=== PATIENT | male | born 1955 | race African-American/Black ===

== ENCOUNTER 2017-04-10 09:54 | Inpatient (IN) | payer MEDICAID ==
[~2017-04-10] VITALS: Ht 185.4 cm; Wt 73.5 kg
[~2017-04-10 09:54] MED LIST: aspirin; benazepril; depakote; nph insulin SUBCUT; regular insulin; regular insulin SUBCUT; simvastatin
[2017-04-10] MEDS ORDERED: SODIUM CHLORIDE 0.9% 1,000 ML IV ONE ×3 (10:06→13:45)
[2017-04-10 10:44] LABS: BASOPHILS % 0.7 % (0.0-2.0); EOSINOPHILS % 0.1 % (0.0-5.0); HEMATOCRIT. 43.1 % (42.0-52.0); HEMOGLOBIN. 13.6 g/dL (14.0-18.0); LYMPHOCYTES % 7.5 % (20.0-50.0); MEAN CORPUSCULAR HEMOGLOBIN 30.2 pg (28.0-32.0); MEAN CORPUSCULAR VOLUME 95.6 fL (80.0-94.0); MEAN PLATELET VOLUME 8.5 fl (7.4-10.4); MONOCYTES % 2.2 % (2.0-8.0); NEUTROPHILS % 89.5 % (40.0-76.0); PLATELET 328 x1000/uL (130-400); RED BLOOD CELL COUNT 4.51 mill/uL (4.7-6.1); RED CELL DISTRIBUTION WIDTH 12.9 % (11.6-14.6)
[2017-04-10] MEDS ORDERED: INSULIN REGULAR (HUMULIN R) 300UNITS/3ML SUBCUT ONE (10:45)
[2017-04-10 10:51] LABS: CHLORIDE 94 mEq/L (98-107)
[2017-04-10 10:52] LABS: INR 1.1
[2017-04-10] MEDS ORDERED: CALCIUM CHLORIDE 1GM/10ML SYR IV ONE (11:30)
[2017-04-10 11:31] LABS: CLARITY URINE CLEAR (CLEAR); COLOR URINE YELLOW (YELLOW); KETONES URINE 2+ (NEGATIVE); LEUKOCYTE ESTERASE URINE NEGATIVE (NEGATIVE); NITRITE URINE NEGATIVE (NEGATIVE); OCCULT BLOOD URINE NEGATIVE (NEGATIVE); PROTEIN URINE NEGATIVE (NEGATIVE); SPECIFIC GRAVITY URINE 1.031 (1.005-1.030); UROBILINOGEN URINE 0.2 E.U./dL (0.2-1.0)
[2017-04-10] MEDS ORDERED: INSULIN REGULAR (DRIP) 100 UNITS in SODIUM CHLORIDE 0.9% 100 ML IV ONE ×2 (12:45→13:15)
[2017-04-10 16:03] VITALS: BP 133/71
[2017-04-10] MEDS ORDERED: HYDROCODONE/ACETAMINOPHEN 5/325MG TABLET PO PRN (17:15)
[2017-04-10] MEDS ORDERED: DEXTROSE 50% WATER 50ML SYRINGE IV PRN (17:15)
[2017-04-10] MEDS ORDERED: ONDANSETRON HCL 4MG/2ML VIAL IV PRN (17:15)
[2017-04-10] MEDS ORDERED: NON FORMULARY PATIENT HOME MED EA XX SCH (17:15)
[2017-04-10 18:00] VITALS: BP 139/79
[2017-04-10] MEDS ORDERED: ENOXAPARIN 40MG/0.4ML SYR SUBCUT SCH (18:00)
[2017-04-10] MEDS: BLOOD SUGAR DIAGNOSTIC STRIP TEST SCH ×2 (18:07→21:02)
[2017-04-10] MEDS: INSULIN LISPRO 100 UNITS/ML SUBCUT SCH ×2 (18:23→21:56)
[2017-04-10] MEDS: SODIUM CHLORIDE 0.9% 1,000 ML IV SCH (18:25)
[2017-04-10 19:31] LABS: CHLORIDE 101 mEq/L (98-107)
[2017-04-10 19:39] LABS: HDL CHOLESTEROL 96 mg/dL (40-59); LDL CHOLESTEROL 126 mg/dL (5-100)
[2017-04-10 21:00] VITALS: BP 120/58
[2017-04-10] MEDS ORDERED: ATORVASTATIN CALCIUM 10MG TABLET PO SCH (21:00)
[2017-04-10] MEDS: INS NPH/REG HM 70-30 100 UNITS/ML 10ML VIAL (HUMULIN 70-30) SUBCUT SCH (21:01)
[2017-04-10] MEDS: INSULIN REGULAR (HUMULIN R) 300UNITS/3ML SUBCUT SCH (21:02)
[2017-04-10 22:00] VITALS: BP 149/84
[2017-04-11] VITALS (10 sets, daily range): BP systolic 124–131; BP diastolic 63–86
[2017-04-11] MEDS: SODIUM CHLORIDE 0.9% 1,000 ML IV SCH ×2 (02:02→09:15)
[2017-04-11 07:15] LABS: BASOPHILS % 0.7 % (0.0-2.0); EOSINOPHILS % 2.4 % (0.0-5.0); HEMATOCRIT. 36.3 % (42.0-52.0); HEMOGLOBIN. 11.9 g/dL (14.0-18.0); LYMPHOCYTES % 15.6 % (20.0-50.0); MEAN CORPUSCULAR HEMOGLOBIN 29.8 pg (28.0-32.0); MEAN CORPUSCULAR VOLUME 90.9 fL (80.0-94.0); MEAN PLATELET VOLUME 7.7 fl (7.4-10.4); MONOCYTES % 7.4 % (2.0-8.0); NEUTROPHILS % 73.9 % (40.0-76.0); PLATELET 282 x1000/uL (130-400); RED BLOOD CELL COUNT 3.99 mill/uL (4.7-6.1); RED CELL DISTRIBUTION WIDTH 12.5 % (11.6-14.6)
[2017-04-11] MEDS: BLOOD SUGAR DIAGNOSTIC STRIP TEST SCH ×2 (07:25→11:42)
[2017-04-11 07:49] LABS: CHLORIDE 108 mEq/L (98-107)
[2017-04-11] MEDS: INSULIN LISPRO 100 UNITS/ML SUBCUT SCH ×2 (08:00→12:07)
[2017-04-11] MEDS: INS NPH/REG HM 70-30 100 UNITS/ML 10ML VIAL (HUMULIN 70-30) SUBCUT SCH (08:09)
[2017-04-11] MEDS: INSULIN REGULAR (HUMULIN R) 300UNITS/3ML SUBCUT SCH (08:10)
== END 2017-04-11 15:35 | disposition home or self-care (01) | DRG 52 ==
LOC: ER 09:54 → EDBEDREQTM 11:57 → EDBEDREQ 11:57 → EDBEDREQSVC 12:41 → EDBEDREQ 12:54 → CANRESERV 12:57 → ENRESERV 12:57 → 5EST 13:56 → EDBEDREQSVC 13:57 → ENRESERV 14:03
PROVIDERS: ADMIT Internal Medicine; ATTEND Internal Medicine
DX: G93.41 Metabolic encephalopathy (principal); N17.0 Acute kidney failure with tubular necrosis; E11.00 Type 2 diabetes mellitus with hyperosmolarity without nonketotic hyperglycemic-hyperosmolar coma (NKHHC); E87.8 Other disorders of electrolyte and fluid balance, not elsewhere classified; I10 Essential (primary) hypertension; E87.1 Hypo-osmolality and hyponatremia; E10.65 Type 1 diabetes mellitus with hyperglycemia; E78.00 Pure hypercholesterolemia, unspecified; E78.5 Hyperlipidemia, unspecified; Z79.4 Long term (current) use of insulin; Z82.49 Family history of ischemic heart disease and other diseases of the circulatory system; Z83.3 Family history of diabetes mellitus
CPT/HCPCS: 36415; 71045; 80048; 80053; 80061; 81001; 82010; 82962; 83036; 83605; 85025; 85610; 87040; 87086; 93005; 99291; J1650; J1815; J3490; J7030; J7050

== ENCOUNTER 2018-08-16 20:15 | Inpatient (IN) | payer MEDICAID ==
[~2018-08-16] VITALS: Ht 180.3 cm; Wt 75.3 kg
[2018-08-16] MEDS ORDERED: SODIUM CHLORIDE 0.9% 1,000 ML IV ONE ×2 (20:47→22:44)
[2018-08-16] MEDS ORDERED: OLANZAPINE 10 MG/VIAL IM ONE (21:00)
[2018-08-16] MEDS ORDERED: LORAZEPAM 2MG/ML CPJ IV ONE ×2 (21:00→23:45)
[2018-08-16] MEDS ORDERED: LORAZEPAM 2MG/ML CPJ IM ONE (21:15)
[2018-08-16 21:16] LABS: CLARITY URINE CLEAR (CLEAR); COLOR URINE YELLOW (YELLOW); KETONES URINE 2+ (NEGATIVE); LEUKOCYTE ESTERASE URINE NEGATIVE (NEGATIVE); NITRITE URINE NEGATIVE (NEGATIVE); OCCULT BLOOD URINE 1+ (NEGATIVE); PROTEIN URINE NEGATIVE (NEGATIVE); SPECIFIC GRAVITY URINE 1.024 (1.005-1.030); UROBILINOGEN URINE 0.2 E.U./dL (0.2-1.0)
[2018-08-16 21:17] LABS: BASOPHILS % 1.2 % (0.0-2.0); EOSINOPHILS % 3.5 % (0.0-5.0); HEMATOCRIT. 35.4 % (42.0-52.0); HEMOGLOBIN. 11.7 g/dL (14.0-18.0); LYMPHOCYTES % 20.6 % (20.0-50.0); MEAN CORPUSCULAR HEMOGLOBIN 31.4 pg (28.0-32.0); MEAN CORPUSCULAR VOLUME 95.1 fL (80.0-94.0); MEAN PLATELET VOLUME 8.3 fl (7.4-10.4); NEUTROPHILS % 64.7 % (40.0-76.0); PLATELET 246 x1000/uL (130-400); RED BLOOD CELL COUNT 3.73 mill/uL (4.7-6.1); RED CELL DISTRIBUTION WIDTH 12.8 % (11.6-14.6)
[2018-08-16 21:25] LABS: CHLORIDE 97 mEq/L (98-107)
[2018-08-16 21:26] LABS: INR 1.1; PROTHROMBIN TIME 10.9 sec (9.6-11.0)
[2018-08-16 21:29] LABS: ETHANOL BLOOD < 10 mg/dL
[2018-08-16 21:30] LABS: BETA HYDROXYBUTYRATE 4.4 mMol/L (0.0-0.3)
[2018-08-16 21:31] LABS: *AMPHETAMINES SCREEN URINE NEGATIVE (NEGATIVE); *BARBITURATES SCREEN URINE NEGATIVE (NEGATIVE); *BENZODIAZEPINES SCREEN URINE PRESUMTIVE POSITIVE (NEGATIVE); *COCAINE SCREEN URINE PRESUMTIVE POSITIVE (NEGATIVE)
[2018-08-16 21:32] LABS: CANNABINOID URINE SCREEN NEGATIVE (NEGATIVE); METHADONE URINE SCREEN NEGATIVE (NEGATIVE); OPIATES URINE SCREEN NEGATIVE (NEGATIVE); PHENCYCLIDINE URINE SCREEN NEGATIVE (NEGATIVE)
[2018-08-16 22:06] LABS: BG CARBOXYHEMOGLOBIN 1.4 % (0.5-1.5); BG DEOXYHEMOGLOBIN 3.7 % (0.0-5.0); BG FRACTION INSPIRED OXYGEN 21; BG HCO3 ACT 18.7 mmol/L (22.0-26.0); BG METHEMOGLOBIN 0.3 % (0.0-1.5); BG OXYGEN SATURATION 96.2 % (92.0-98.5); BG OXYHEMOGLOBIN 94.6 % (94.0-97.0); BG PCO2 38.3 mmHg (35.0-45.0); BG PH 7.307 (7.350-7.450); BG PO2 90.7 mmHg (75.0-100.0); BG SAMPLE SITE RIGHT BRACHIAL; BG TOTAL HEMOGLOBIN 12.2 g/dL (12.0-18.0); BG VENT MODE ROOM AIR
[2018-08-16] MEDS ORDERED: INSULIN REGULAR (HUMULIN R) 300UNITS/3ML SUBCUT ONE (22:45)
[2018-08-16] MEDS ORDERED: INSULIN REGULAR (HUMULIN R) 300UNITS/3ML IV ONE (22:45)
[2018-08-16 23:05] LABS: PHOSPHORUS 3.5 mg/dL (2.5-4.9)
[2018-08-16] MEDS ORDERED: MAGNESIUM/ALUMINUM HYDROXIDE/SIMETHICONE 30ML UDC PO PRN (23:45)
[2018-08-16] MEDS ORDERED: IPRATROPIUM/ALBUTEROL 0.5-3(2.5)MG/3ML NEB INH PRN (23:45)
[2018-08-16] MEDS ORDERED: DOCUSATE SODIUM 100MG CAPSULE PO PRN (23:45)
[2018-08-16] MEDS ORDERED: CLONIDINE 0.1MG TABLET PO PRN (23:45)
[2018-08-16] MEDS ORDERED: HYDROCODONE/ACETAMINOPHEN 5/325MG TABLET PO PRN (23:45)
[2018-08-16] MEDS ORDERED: ACETAMINOPHEN 325MG TABLET PO PRN (23:45)
[2018-08-17] VITALS (15 sets, daily range): BP systolic 101–151; BP diastolic 54–87
[2018-08-17 00:38] LABS: CHLORIDE 101 mEq/L (98-107)
[2018-08-17] MEDS: SODIUM CHLORIDE 0.9% 1,000 ML IV SCH ×4 (02:40→18:45)
[2018-08-17] MEDS ORDERED: KETAMINE HCL 50 MG/ML 10ML IV ONE (05:45)
[2018-08-17] MEDS ORDERED: ONDANSETRON HCL 4MG/2ML INJ IV ONE (05:45)
[2018-08-17 06:02] LABS: BASOPHILS % 1.2 % (0.0-2.0); EOSINOPHILS % 0.9 % (0.0-5.0); HEMATOCRIT. 37.1 % (42.0-52.0); HEMOGLOBIN. 12.4 g/dL (14.0-18.0); LYMPHOCYTES % 7.4 % (20.0-50.0); MEAN CORPUSCULAR HEMOGLOBIN 30.9 pg (28.0-32.0); MEAN CORPUSCULAR VOLUME 92.6 fL (80.0-94.0); MEAN PLATELET VOLUME 8.3 fl (7.4-10.4); NEUTROPHILS % 83.5 % (40.0-76.0); PLATELET 295 x1000/uL (130-400); RED CELL DISTRIBUTION WIDTH 12.7 % (11.6-14.6)
[2018-08-17 06:09] LABS: CHLORIDE 106 mEq/L (98-107)
[2018-08-17 06:16] LABS: LDL CHOLESTEROL 108 mg/dL (5-100)
[2018-08-17 06:17] LABS: HDL CHOLESTEROL 107 mg/dL (40-59)
[2018-08-17 06:19] LABS: CREATINE KINASE MB FRACTION 7.4 ng/mL (0.5-3.6)
[2018-08-17 06:34] LABS: CREATINE KINASE 1237 IU/L (39-308)
[2018-08-17] MEDS ORDERED: LORAZEPAM 2MG/ML CPJ IM STA (08:25)
[2018-08-17] MEDS ORDERED: LORAZEPAM 2MG/ML CPJ ONE (08:27)
[2018-08-17] MEDS ORDERED: OLANZAPINE 10 MG/VIAL IM ONE ×2 (08:27→08:30)
[2018-08-17] MEDS ORDERED: DEXTROSE 50% WATER 50ML SYRINGE IV PRN (12:00)
[2018-08-17] MEDS: INSULIN LISPRO 100 UNITS/ML SUBCUT SCH ×5 (12:11→20:41)
[2018-08-17] MEDS: ENOXAPARIN 40MG/0.4ML SYR SUBCUT SCH (12:12)
[2018-08-17] MEDS: HALOPERIDOL LACTATE 5MG/ML VIAL IM PRN ×2 (14:58→22:42)
[2018-08-17] MEDS: LORAZEPAM 2MG/ML CPJ IM PRN ×2 (16:25→22:43)
[2018-08-17] MEDS: BLOOD SUGAR DIAGNOSTIC STRIP TEST SCH ×2 (16:50→20:38)
[2018-08-17] MEDS ORDERED: INSULIN GLARGINE UD 100 UNITS/ML SYR SUBCUT SCH (22:00)
[2018-08-17] MEDS: INSULIN GLARGINE UD 100 UNITS/ML SYR SUBCUT SCH (22:43)
[2018-08-17 22:54] LABS: TOTAL IRON BINDING CAPACITY 229 ug/dL (250-450)
[2018-08-17 22:57] LABS: CREATINE KINASE MB FRACTION 5.9 ng/mL (0.5-3.6)
[2018-08-17 23:07] LABS: CREATINE KINASE 1859 IU/L (39-308)
[2018-08-18] VITALS (25 sets, daily range): BP systolic 102–157; BP diastolic 57–105
[2018-08-18] MEDS: HALOPERIDOL LACTATE 5MG/ML VIAL IM PRN ×4 (04:50→23:05)
[2018-08-18] MEDS: LORAZEPAM 2MG/ML CPJ IM PRN ×3 (04:50→15:40)
[2018-08-18] MEDS: SODIUM CHLORIDE 0.9% 1,000 ML IV SCH ×2 (04:56→16:05)
[2018-08-18] MEDS: BLOOD SUGAR DIAGNOSTIC STRIP TEST SCH ×4 (06:02→21:00)
[2018-08-18] MEDS: INSULIN LISPRO 100 UNITS/ML SUBCUT SCH ×7 (06:03→21:00)
[2018-08-18] MEDS: ENOXAPARIN 40MG/0.4ML SYR SUBCUT SCH (11:07)
[2018-08-18] MEDS: ONDANSETRON HCL 4MG/2ML INJ IV PRN ×2 (14:31→15:40)
[2018-08-18] MEDS: ATORVASTATIN CALCIUM 20MG TABLET PO SCH (21:00)
[2018-08-18] MEDS: INSULIN GLARGINE UD 100 UNITS/ML SYR SUBCUT SCH (22:14)
[2018-08-19] VITALS (28 sets, daily range): BP systolic 94–156; BP diastolic 23–90
[2018-08-19] MEDS: INSULIN LISPRO 100 UNITS/ML SUBCUT SCH ×7 (06:30→21:00)
[2018-08-19] MEDS: BLOOD SUGAR DIAGNOSTIC STRIP TEST SCH ×4 (06:30→21:06)
[2018-08-19] MEDS: HALOPERIDOL LACTATE 5MG/ML VIAL IM PRN (08:13)
[2018-08-19 08:48] LABS: BASOPHILS % 0.7 % (0.0-2.0); EOSINOPHILS % 1.5 % (0.0-5.0); HEMATOCRIT. 37.2 % (42.0-52.0); HEMOGLOBIN. 12.3 g/dL (14.0-18.0); LYMPHOCYTES % 7.5 % (20.0-50.0); MEAN CORPUSCULAR HEMOGLOBIN 30.5 pg (28.0-32.0); MEAN CORPUSCULAR VOLUME 92.1 fL (80.0-94.0); MEAN PLATELET VOLUME 7.7 fl (7.4-10.4); MONOCYTES % 8.4 % (2.0-8.0); NEUTROPHILS % 81.9 % (40.0-76.0); PLATELET 250 x1000/uL (130-400); RED BLOOD CELL COUNT 4.04 mill/uL (4.7-6.1); RED CELL DISTRIBUTION WIDTH 12.7 % (11.6-14.6)
[2018-08-19 08:57] LABS: CHLORIDE 109 mEq/L (98-107)
[2018-08-19 09:20] LABS: CREATINE KINASE 2490 IU/L (39-308)
[2018-08-19] MEDS: OLANZAPINE 5MG TABLET ODT PO SCH (10:30)
[2018-08-19] MEDS: ENOXAPARIN 40MG/0.4ML SYR SUBCUT SCH (11:00)
[2018-08-19] MEDS: SODIUM CHLORIDE 0.9% 1,000 ML IV SCH ×3 (12:18→21:22)
[2018-08-19] MEDS: ATORVASTATIN CALCIUM 20MG TABLET PO SCH (21:09)
[2018-08-19] MEDS: INSULIN GLARGINE UD 100 UNITS/ML SYR SUBCUT SCH (21:10)
[2018-08-20] VITALS (21 sets, daily range): BP systolic 82–133; BP diastolic 42–74
[2018-08-20 04:13] LABS: BASOPHILS % 0.7 % (0.0-2.0); EOSINOPHILS % 3.2 % (0.0-5.0); HEMATOCRIT. 35.2 % (42.0-52.0); HEMOGLOBIN. 11.6 g/dL (14.0-18.0); LYMPHOCYTES % 15.6 % (20.0-50.0); MEAN CORPUSCULAR HEMOGLOBIN 30.5 pg (28.0-32.0); MEAN CORPUSCULAR VOLUME 92.6 fL (80.0-94.0); MEAN PLATELET VOLUME 7.8 fl (7.4-10.4); MONOCYTES % 8.7 % (2.0-8.0); NEUTROPHILS % 71.8 % (40.0-76.0); PLATELET 238 x1000/uL (130-400); RED CELL DISTRIBUTION WIDTH 12.6 % (11.6-14.6)
[2018-08-20 05:01] LABS: CHLORIDE 110 mEq/L (98-107)
[2018-08-20 05:09] LABS: PHOSPHORUS 2.8 mg/dL (2.5-4.9)
[2018-08-20 05:22] LABS: CREATINE KINASE 1276 IU/L (39-308)
[2018-08-20] MEDS: INSULIN LISPRO 100 UNITS/ML SUBCUT SCH ×5 (06:30→12:40)
[2018-08-20] MEDS: BLOOD SUGAR DIAGNOSTIC STRIP TEST SCH ×2 (06:44→11:41)
[2018-08-20] MEDS: OLANZAPINE 5MG TABLET ODT PO SCH (09:04)
[2018-08-20] MEDS: ENOXAPARIN 40MG/0.4ML SYR SUBCUT SCH (11:05)
== END 2018-08-20 14:13 | disposition left against medical advice (07) | DRG 816 ==
LOC: ER 20:15 → MICUSO 23:06 → EDBEDREQSVC 23:07 → EDBEDREQTM 23:07 → EDBEDREQ 23:07 → EDBEDREQSVC 08-17 01:23 → ENRESERV 08-17 01:26 → CANRESERV 08-17 01:26 → ENRESERV 08-17 07:06 → EDBEDREQSVC 08-17 08:42 → ENRESERV 08-17 08:54 → CANRESERV 08-17 08:54 → ENRESERV 08-17 08:58 → 8WST 08-20 12:16
PROVIDERS: ADMIT Internal Medicine; ATTEND Internal Medicine
DX: T40.5X1A Poisoning by cocaine, accidental (unintentional), initial encounter (principal); G93.40 Encephalopathy, unspecified; N17.9 Acute kidney failure, unspecified; E87.2 Acidosis; E11.65 Type 2 diabetes mellitus with hyperglycemia; M62.82 Rhabdomyolysis; E87.1 Hypo-osmolality and hyponatremia; Z53.21 Procedure and treatment not carried out due to patient leaving prior to being seen by health care provider; D64.9 Anemia, unspecified; E78.5 Hyperlipidemia, unspecified; E86.0 Dehydration; T44.905A Adverse effect of unspecified drugs primarily affecting the autonomic nervous system, initial encounter; F14.959 Cocaine use, unspecified with cocaine-induced psychotic disorder, unspecified; I10 Essential (primary) hypertension; Z78.1 Physical restraint status; Z82.49 Family history of ischemic heart disease and other diseases of the circulatory system; Z83.3 Family history of diabetes mellitus; Y92.89 Other specified places as the place of occurrence of the external cause; Z79.899 Other long term (current) drug therapy; Z79.82 Long term (current) use of aspirin
CPT/HCPCS: 36415; 36600; 80048; 80061; 80305; 80320; 82010; 82375; 82550; 82553; 82728; 82805; 82962; 83036; 83540; 83550; 83605; 83735; 83880; 83930; 84100; 84443; 84484; 93005; 93970; 96361; 96372; 96374; 99285; J1630; J1650; J1815; J2060; J2405; J3490; J7030; A4315; G0480

== ENCOUNTER 2018-08-25 00:21 | Inpatient (IN) | payer MEDICAID ==
[2018-08-25] VITALS (37 sets, daily range): BP systolic 104–142; BP diastolic 45–78
[~2018-08-25] VITALS: Ht 175.3 cm; Wt 72.6 kg
[2018-08-25] MEDS ORDERED: ONDANSETRON HCL 4MG/2ML INJ IV STA (01:06)
[2018-08-25] MEDS ORDERED: SODIUM CHLORIDE 0.9% 1,000 ML IV ONE ×5 (01:06)
[2018-08-25] MEDS ORDERED: INSULIN REGULAR (DRIP) 100 UNITS in SODIUM CHLORIDE 0.9% 99 ML IV SCH (01:15)
[2018-08-25 01:45] LABS: CHLORIDE 93 mEq/L (98-107)
[2018-08-25 01:46] LABS: INR 1.1; PROTHROMBIN TIME 11.1 sec (9.6-11.0)
[2018-08-25 01:49] LABS: ETHANOL BLOOD < 10 mg/dL
[2018-08-25 01:56] LABS: HEMATOCRIT. 41.4 % (42.0-52.0); HEMOGLOBIN. 11.8 g/dL (14.0-18.0); MEAN CORPUSCULAR HEMOGLOBIN 30.7 pg (28.0-32.0); MEAN CORPUSCULAR VOLUME 107.5 fL (80.0-94.0); MEAN PLATELET VOLUME 8.8 fl (7.4-10.4); PLATELET 549 x1000/uL (130-400); RED BLOOD CELL COUNT 3.85 mill/uL (4.7-6.1); RED CELL DISTRIBUTION WIDTH 14.3 % (11.6-14.6)
[2018-08-25] MEDS ORDERED: SODIUM CHLORIDE 0.9% 1,000 ML IV STA (02:00)
[2018-08-25 02:02] LABS: BG BASE EXCESS -26.3 mmol/L (-2.0-2.0); BG CARBOXYHEMOGLOBIN 0.3 % (0.5-1.5); BG DEOXYHEMOGLOBIN 2.4 % (0.0-5.0); BG FRACTION INSPIRED OXYGEN 28; BG HCO3 ACT 2.4 mmol/L (22.0-26.0); BG METHEMOGLOBIN 0.4 % (0.0-1.5); BG OXYGEN SATURATION 97.6 % (92.0-98.5); BG OXYHEMOGLOBIN 96.9 % (94.0-97.0); BG PCO2 9.4 mmHg (35.0-45.0); BG PH 7.028 (7.350-7.450); BG PO2 140.1 mmHg (75.0-100.0); BG SAMPLE SITE LEFT RADIAL; BG TOTAL HEMOGLOBIN 11.8 g/dL (12.0-18.0); BG VENT MODE NASAL CANNULA
[2018-08-25 02:24] LABS: BETA HYDROXYBUTYRATE 17.8 mMol/L (0.0-0.3)
[2018-08-25] MEDS ORDERED: AZITHROMYCIN 500 MG in DEXT 5% WATER 250 ML IV ONE (02:45)
[2018-08-25] MEDS ORDERED: CEFTRIAXONE 1 G PREMIX 50 ML IV ONE (02:45)
[2018-08-25 03:12] LABS: PHOSPHORUS 8.7 mg/dL (2.5-4.9)
[2018-08-25 03:13] LABS: PLATELET ESTIMATE SLIGHTLY INCREASED
[2018-08-25 03:17] LABS: CLARITY URINE CLEAR (CLEAR); COLOR URINE YELLOW (YELLOW); KETONES URINE 3+ (NEGATIVE); LEUKOCYTE ESTERASE URINE NEGATIVE (NEGATIVE); NITRITE URINE NEGATIVE (NEGATIVE); OCCULT BLOOD URINE 1+ (NEGATIVE); PROTEIN URINE 1+ (NEGATIVE); SPECIFIC GRAVITY URINE 1.019 (1.005-1.030); UROBILINOGEN URINE 0.2 E.U./dL (0.2-1.0)
[2018-08-25 03:26] LABS: *AMPHETAMINES SCREEN URINE NEGATIVE (NEGATIVE); *BARBITURATES SCREEN URINE NEGATIVE (NEGATIVE); *BENZODIAZEPINES SCREEN URINE NEGATIVE (NEGATIVE); *COCAINE SCREEN URINE PRESUMTIVE POSITIVE (NEGATIVE); METHADONE URINE SCREEN NEGATIVE (NEGATIVE); OPIATES URINE SCREEN NEGATIVE (NEGATIVE)
[2018-08-25 03:27] LABS: CANNABINOID URINE SCREEN NEGATIVE (NEGATIVE); PHENCYCLIDINE URINE SCREEN NEGATIVE (NEGATIVE)
[2018-08-25 04:32] LABS: PHOSPHORUS 6.3 mg/dL (2.5-4.9)
[2018-08-25 06:19] LABS: PHOSPHORUS 3.3 mg/dL (2.5-4.9)
[2018-08-25] MEDS ORDERED: DEXTROSE 50% WATER 50ML SYRINGE IV PRN ×3 (07:00→14:00)
[2018-08-25] MEDS ORDERED: ONDANSETRON HCL 4MG/2ML INJ IV PRN (07:00)
[2018-08-25] MEDS ORDERED: MORPHINE SULFATE 2 MG/ML CPJ (NOT FOR IM USE) IV PRN (07:00)
[2018-08-25] MEDS: BLOOD SUGAR DIAGNOSTIC STRIP TEST SCH ×10 (07:16→21:14)
[2018-08-25] MEDS: AZITHROMYCIN 500 MG in DEXT 5% WATER 250 ML IV SCH (08:13)
[2018-08-25] MEDS: FAMOTIDINE 20MG/2ML VIAL IV SCH (08:49)
[2018-08-25] MEDS: ENOXAPARIN 40MG/0.4ML SYR SUBCUT SCH (08:50)
[2018-08-25] MEDS ORDERED: INSULIN REGULAR (DRIP) 100 UNITS in SODIUM CHLORIDE 0.9% 100 ML IV SCH (09:00)
[2018-08-25] MEDS ORDERED: IPRATROPIUM/ALBUTEROL 0.5-3(2.5)MG/3ML NEB HHN PRN (09:00)
[2018-08-25] MEDS ORDERED: SODIUM CHLORIDE 0.9% 1,000 ML IV SCH (09:00)
[2018-08-25] MEDS ORDERED: SODIUM CHL 0.9% + KCL 20MEQ/L 1,000 ML IV SCH (09:00)
[2018-08-25] MEDS: CEFTRIAXONE 1 G PREMIX 50 ML IV SCH (11:00)
[2018-08-25 13:14] LABS: CHLORIDE 118 mEq/L (98-107)
[2018-08-25] MEDS ORDERED: DEXT 5%/0.45% NACL 1000ML 1,000 ML IV SCH (14:00)
[2018-08-25] MEDS: INSULIN LISPRO 100 UNITS/ML SUBCUT SCH ×2 (16:00→21:15)
[2018-08-25 18:50] LABS: CHLORIDE 114 mEq/L (98-107)
[2018-08-25] MEDS: INSULIN GLARGINE UD 100 UNITS/ML SYR SUBCUT SCH (21:15)
[2018-08-26] VITALS: BP 123/66
[2018-08-26 01:06] LABS: CHLORIDE 112 mEq/L (98-107)
[2018-08-26 04:00] VITALS: BP 117/70
[2018-08-26 06:16] LABS: CHLORIDE 114 mEq/L (98-107)
[2018-08-26 06:24] LABS: HEMATOCRIT. 30.5 % (42.0-52.0); HEMOGLOBIN. 10.1 g/dL (14.0-18.0); MEAN CORPUSCULAR HEMOGLOBIN 30.4 pg (28.0-32.0); MEAN CORPUSCULAR VOLUME 92.2 fL (80.0-94.0); MEAN PLATELET VOLUME 7.5 fl (7.4-10.4); PLATELET 412 x1000/uL (130-400); RED BLOOD CELL COUNT 3.31 mill/uL (4.7-6.1); RED CELL DISTRIBUTION WIDTH 12.7 % (11.6-14.6)
[2018-08-26] MEDS: BLOOD SUGAR DIAGNOSTIC STRIP TEST SCH ×2 (06:24→12:20)
[2018-08-26] MEDS: INSULIN LISPRO 100 UNITS/ML SUBCUT SCH ×2 (06:56→12:23)
[2018-08-26 08:00] VITALS: BP 120/71
[2018-08-26] MEDS: AZITHROMYCIN 500 MG in DEXT 5% WATER 250 ML IV SCH (08:49)
[2018-08-26] MEDS: FAMOTIDINE 20MG/2ML VIAL IV SCH (08:49)
[2018-08-26] MEDS: ENOXAPARIN 40MG/0.4ML SYR SUBCUT SCH (08:49)
[2018-08-26] MEDS: CEFTRIAXONE 1 G PREMIX 50 ML IV SCH ×2 (10:00→10:42)
[2018-08-26 10:01] LABS: PLATELET ESTIMATE INCREASED
[2018-08-26] MEDS: INSULIN GLARGINE UD 100 UNITS/ML SYR SUBCUT SCH (10:42)
== END 2018-08-26 15:00 | disposition left against medical advice (07) | DRG 720 ==
LOC: ER 00:21 → MICUSO 02:56 → EDBEDREQTM 02:59 → EDBEDREQ 02:59 → ENRESERV 05:59 → 6EST 22:30
PROVIDERS: ADMIT Internal Medicine; ATTEND Internal Medicine
DX: A41.9 Sepsis, unspecified organism (principal); E11.10 Type 2 diabetes mellitus with ketoacidosis without coma; J18.1 Lobar pneumonia, unspecified organism; E87.8 Other disorders of electrolyte and fluid balance, not elsewhere classified; E44.1 Mild protein-calorie malnutrition; E86.0 Dehydration; E87.1 Hypo-osmolality and hyponatremia; E87.5 Hyperkalemia; I10 Essential (primary) hypertension; D64.9 Anemia, unspecified; F14.90 Cocaine use, unspecified, uncomplicated; F17.210 Nicotine dependence, cigarettes, uncomplicated; Z53.21 Procedure and treatment not carried out due to patient leaving prior to being seen by health care provider; Z79.4 Long term (current) use of insulin; Z68.23 Body mass index [BMI] 23.0-23.9, adult
CPT/HCPCS: 36415; 36600; 71045; 80048; 80305; 80320; 82010; 82375; 82805; 82962; 83605; 83735; 83930; 84100; 84145; 84484; 93005; 96374; 99285; J0456; J0696; J1650; J1815; J2405; J3480; J3490; J7030; J7050; J7060; A4315; G0480

== ENCOUNTER 2018-11-28 18:16 | Inpatient (IN) | payer MEDICAID, OTHER ==
[~2018-11-28] VITALS: Ht 182.9 cm; Wt 75.0 kg
[2018-11-28] MEDS ORDERED: SODIUM CHLORIDE 0.9% 1000ML BAG (SEPSIS BOLUS) IV ONE (18:45)
[2018-11-28] MEDS ORDERED: LIDOCAINE 1%/EPI 1:100,000 10 ML VIAL IJ ONE (18:45)
[2018-11-28] MEDS ORDERED: TETANUS, DIPHTHERIA, PERTUSSIS VAC/PF 0.5ML (>7YR OLD) IM ONE (18:45)
[2018-11-28 19:09] LABS: BASOPHILS % 1.4 % (0.0-2.0); EOSINOPHILS % 1.1 % (0.0-5.0); HEMATOCRIT. 42.6 % (42.0-52.0); HEMOGLOBIN. 13.7 g/dL (14.0-18.0); LYMPHOCYTES % 23.9 % (20.0-50.0); MEAN CORPUSCULAR VOLUME 96.2 fL (80.0-94.0); MEAN PLATELET VOLUME 8.1 fl (7.4-10.4); MONOCYTES % 8.5 % (2.0-8.0); NEUTROPHILS % 65.1 % (40.0-76.0); PLATELET 248 x1000/uL (130-400); RED BLOOD CELL COUNT 4.43 mill/uL (4.7-6.1); RED CELL DISTRIBUTION WIDTH 13.5 % (11.6-14.6)
[2018-11-28 19:14] LABS: PROTHROMBIN TIME 10.7 sec (9.6-11.0)
[2018-11-28 19:15] LABS: CHLORIDE 103 mEq/L (98-107)
[2018-11-28 19:21] LABS: ETHANOL BLOOD < 10 mg/dL
[2018-11-28 19:24] LABS: BETA HYDROXYBUTYRATE 5.3 mMol/L (0.0-0.3)
[2018-11-28 19:26] LABS: CREATINE KINASE 149 IU/L (39-308)
[2018-11-28] MEDS ORDERED: NALOXONE HCL 1 MG/ML 2ML VIAL IV ONE (19:30)
[2018-11-28 19:34] LABS: BG BASE EXCESS -9.4 mmol/L (-2.0-2.0); BG CARBOXYHEMOGLOBIN 0.5 % (0.5-1.5); BG DEOXYHEMOGLOBIN 4.2 % (0.0-5.0); BG FRACTION INSPIRED OXYGEN 21; BG METHEMOGLOBIN 0.1 % (0.0-1.5); BG OXYGEN SATURATION 95.8 % (92.0-98.5); BG OXYHEMOGLOBIN 95.2 % (94.0-97.0); BG PCO2 38.9 mmHg (35.0-45.0); BG PH 7.259 (7.350-7.450); BG PO2 88.5 mmHg (75.0-100.0); BG SAMPLE SITE RIGHT RADIAL; BG TOTAL HEMOGLOBIN 14.4 g/dL (12.0-18.0); BG VENT MODE ROOM AIR
[2018-11-28] MEDS ORDERED: INSULIN REGULAR (HUMULIN R) 300UNITS/3ML IV ONE (19:45)
[2018-11-28] MEDS ORDERED: HYDROCODONE/ACETAMINOPHEN 5/325MG TABLET PO PRN (20:00)
[2018-11-28] MEDS ORDERED: LIDOCAINE HCL/EPINEPHRINE 1%-EPI 1:100,000 20 ML VIAL INFIL NR (20:00)
[2018-11-28] MEDS ORDERED: ACETAMINOPHEN 325MG TABLET PO PRN (20:00)
[2018-11-28] MEDS ORDERED: DOCUSATE SODIUM 100MG CAPSULE PO PRN (20:00)
[2018-11-28] MEDS ORDERED: NA PHOS,M-B/NA PHOS,DI-BA ENEMA 118ML PR PRN (20:00)
[2018-11-28] MEDS ORDERED: MAGNESIUM/ALUMINUM HYDROXIDE/SIMETHICONE 30ML UDC PO PRN (20:00)
[2018-11-28] MEDS ORDERED: DIPHENHYDRAMINE 50MG/ML VIAL IV PRN (20:00)
[2018-11-28] MEDS ORDERED: IPRATROPIUM/ALBUTEROL 0.5-3(2.5)MG/3ML NEB NEB PRN (20:00)
[2018-11-28] MEDS ORDERED: CLONIDINE 0.1MG TABLET PO PRN (20:00)
[2018-11-28] MEDS ORDERED: INSULIN REGULAR (DRIP) 100 UNITS in SODIUM CHLORIDE 0.9% 100 ML IV SCH (20:00)
[2018-11-28] MEDS ORDERED: GUAIFENESIN 200MG/10ML SUGAR FREE UDC PO PRN (20:00)
[2018-11-28] MEDS ORDERED: ONDANSETRON HCL 4MG/2ML INJ IV PRN (20:00)
[2018-11-28] MEDS ORDERED: LORAZEPAM 2MG/ML CPJ IV PRN (20:00)
[2018-11-28] MEDS ORDERED: INSULIN REGULAR (DRIP) 100 UNITS in SODIUM CHLORIDE 0.9% 100 ML IV NR (20:15)
[2018-11-28] MEDS ORDERED: LEVOFLOXACIN 500MG PREMIX 100 ML IV NR (20:15)
[2018-11-28] MEDS ORDERED: ASPIRIN 81MG TABLET PO ONE (20:30)
[2018-11-28] MEDS ORDERED: MORPHINE SULFATE 2 MG/ML CPJ (NOT FOR IM USE) IV PRN (20:37)
[2018-11-28] MEDS: SODIUM CHLORIDE 0.9% 1,000 ML IV SCH (20:41)
[2018-11-28 21:19] LABS: CHLORIDE 106 mEq/L (98-107)
[2018-11-28 22:00] VITALS: BP 100/65
[2018-11-28 22:30] VITALS: BP 106/58
[2018-11-28 23:00] VITALS: BP 102/49
[2018-11-28 23:30] VITALS: BP 113/64
[2018-11-29] VITALS (38 sets, daily range): BP systolic 95–157; BP diastolic 45–114
[2018-11-29] MEDS ORDERED: NOREPINEPHRINE 4 MG in DEXT 5% WATER 250 ML IV ONE ×2
[2018-11-29] MEDS ORDERED: INSULIN REGULAR (DRIP) 100 UNITS in SODIUM CHLORIDE 0.9% 99 ML IV SCH ×4
[2018-11-29] MEDS ORDERED: NOREPINEPHRINE 4 MG in DEXT 5% WATER 250 ML IV PRN (04:15)
[2018-11-29 05:50] LABS: BASOPHILS % 0.8 % (0.0-2.0); EOSINOPHILS % 0.2 % (0.0-5.0); LYMPHOCYTES % 12.9 % (20.0-50.0); MEAN CORPUSCULAR HEMOGLOBIN 30.6 pg (28.0-32.0); MEAN CORPUSCULAR VOLUME 93.9 fL (80.0-94.0); MEAN PLATELET VOLUME 7.8 fl (7.4-10.4); MONOCYTES % 10.1 % (2.0-8.0); PLATELET 282 x1000/uL (130-400); RED BLOOD CELL COUNT 4.59 mill/uL (4.7-6.1); RED CELL DISTRIBUTION WIDTH 13.2 % (11.6-14.6)
[2018-11-29 05:53] LABS: CHLORIDE 109 mEq/L (98-107)
[2018-11-29 06:09] LABS: LDL CHOLESTEROL 123 mg/dL (5-100)
[2018-11-29 06:11] LABS: HDL CHOLESTEROL 82 mg/dL (40-59); T4 FREE 0.93 ng/dL (0.76-1.46)
[2018-11-29] MEDS ORDERED: DEXTROSE 50% WATER 50ML SYRINGE IV PRN (10:15)
[2018-11-29] MEDS ORDERED: INSULIN GLARGINE UD 100 UNITS/ML SYR SUBCUT NR (10:30)
[2018-11-29] MEDS ORDERED: BLOOD SUGAR DIAGNOSTIC STRIP TEST SCH (12:50)
[2018-11-29] MEDS ORDERED: INSULIN LISPRO 100 UNITS/ML SUBCUT SCH (13:20)
[2018-11-29] MEDS: SODIUM CHLORIDE 0.9% 1,000 ML IV SCH (15:15)
[2018-11-29 15:49] LABS: CREATINE KINASE 123 IU/L (39-308)
[2018-11-29 15:50] LABS: CREATINE KINASE MB FRACTION 1.5 ng/mL (0.5-3.6)
[2018-11-29] MEDS ORDERED: LEVOFLOXACIN 500MG PREMIX 100 ML IV SCH ×2 (21:00)
[2018-11-29] MEDS ORDERED: INSULIN GLARGINE UD 100 UNITS/ML SYR SUBCUT SCH (22:00)
== END 2018-11-29 16:30 | disposition left against medical advice (07) | DRG 420 ==
LOC: ER 18:38 → CVICU 19:33 → EDBEDREQSVC 19:51 → EDBEDREQ 19:51 → EDBEDREQTM 19:51 → ENRESERV 20:56
PROVIDERS: ADMIT Internal Medicine; ATTEND Internal Medicine
DX: E11.10 Type 2 diabetes mellitus with ketoacidosis without coma (principal); I63.9 Cerebral infarction, unspecified; N17.0 Acute kidney failure with tubular necrosis; G93.41 Metabolic encephalopathy; I95.9 Hypotension, unspecified; D63.8 Anemia in other chronic diseases classified elsewhere; G90.8 Other disorders of autonomic nervous system; S01.91XA Laceration without foreign body of unspecified part of head, initial encounter; E86.0 Dehydration; J43.9 Emphysema, unspecified; E78.00 Pure hypercholesterolemia, unspecified; E78.5 Hyperlipidemia, unspecified; F17.210 Nicotine dependence, cigarettes, uncomplicated; Z91.19 Patient's noncompliance with other medical treatment and regimen; Z79.4 Long term (current) use of insulin; G40.909 Epilepsy, unspecified, not intractable, without status epilepticus; I12.9 Hypertensive chronic kidney disease with stage 1 through stage 4 chronic kidney disease, or unspecified chronic kidney disease; N18.9 Chronic kidney disease, unspecified; W18.39XA Other fall on same level, initial encounter; Y93.89 Activity, other specified; Y92.89 Other specified places as the place of occurrence of the external cause; Y99.8 Other external cause status
CPT/HCPCS: 36415; 36600; 71045; 80048; 80061; 80320; 82010; 82375; 82550; 82553; 82805; 82962; 83036; 83605; 83721; 83735; 83880; 84145; 84439; 84443; 84484; 85379; 86850; 86900; 90715; 93005; 93306; 99291; J1815; J1956; J2310; J3490; J7030; J7050; J7060; G0480

== ENCOUNTER 2019-01-11 18:57 | Inpatient (IN) | payer MEDICAID ==
[~2019-01-11] VITALS: Ht 185.4 cm; Wt 121.6 kg
[2019-01-11] MEDS ORDERED: SODIUM CHLORIDE 0.9% 1,000 ML IV ONE (19:40)
[2019-01-11 20:26] LABS: BASOPHILS % 0.9 % (0.0-2.0); EOSINOPHILS % 0.4 % (0.0-5.0); HEMATOCRIT. 48.4 % (42.0-52.0); HEMOGLOBIN. 15.7 g/dL (14.0-18.0); MEAN CORPUSCULAR HEMOGLOBIN 31.4 pg (28.0-32.0); MEAN CORPUSCULAR VOLUME 96.6 fL (80.0-94.0); MEAN PLATELET VOLUME 8.6 fl (7.4-10.4); MONOCYTES % 3.4 % (2.0-8.0); NEUTROPHILS % 85.3 % (40.0-76.0); PLATELET 318 x1000/uL (130-400); RED BLOOD CELL COUNT 5.01 mill/uL (4.7-6.1); RED CELL DISTRIBUTION WIDTH 13.2 % (11.6-14.6)
[2019-01-11 20:32] LABS: CHLORIDE 92 mEq/L (98-107)
[2019-01-11 20:33] LABS: PARTIAL THROMBOPLASTIN TIME 24.4 sec (23.4-31.0); PROTHROMBIN TIME 10.7 sec (9.6-11.0)
[2019-01-11 20:36] LABS: ETHANOL BLOOD < 10 mg/dL
[2019-01-11 20:42] LABS: BETA HYDROXYBUTYRATE 8.5 mMol/L (0.0-0.3)
[2019-01-11] MEDS ORDERED: SODIUM CHLORIDE 0.9% 1,000 ML IV STA (21:26)
[2019-01-11] MEDS ORDERED: INSULIN REGULAR (DRIP) 100 UNITS in SODIUM CHLORIDE 0.9% 99 ML IV NR (22:00)
[2019-01-11] MEDS ORDERED: INSULIN REGULAR (DRIP) 100 UNITS in SODIUM CHLORIDE 0.9% 100 ML IV SCH (22:15)
[2019-01-11] MEDS ORDERED: IPRATROPIUM/ALBUTEROL 0.5-3(2.5)MG/3ML NEB NEB PRN (22:15)
[2019-01-11] MEDS ORDERED: ONDANSETRON HCL 4MG/2ML INJ IV PRN (22:15)
[2019-01-11 23:21] LABS: PHOSPHORUS 5.6 mg/dL (2.5-4.9)
[2019-01-11 23:30] VITALS: BP 135/78
[2019-01-11 23:45] VITALS: BP 135/73
[2019-01-12] VITALS (63 sets, daily range): BP systolic 99–148; BP diastolic 49–88
[2019-01-12] MEDS ORDERED: SODIUM CHLORIDE 0.9% 1,000 ML IV SCH
[2019-01-12] MEDS ORDERED: DEXT 5%/0.9% NACL 1,000 ML IV PRN
[2019-01-12 01:57] LABS: PHOSPHORUS 5.1 mg/dL (2.5-4.9)
[2019-01-12] MEDS ORDERED: DEXTROSE 50% WATER 50ML SYRINGE IV PRN ×3 (03:15→10:15)
[2019-01-12] MEDS ORDERED: INSULIN REGULAR (DRIP) 100 UNITS in SODIUM CHLORIDE 0.9% 99 ML IV SCH (04:00)
[2019-01-12 05:34] LABS: CHLORIDE 108 mEq/L (98-107)
[2019-01-12 05:41] LABS: LDL CHOLESTEROL 121 mg/dL (5-100)
[2019-01-12 05:42] LABS: CREATINE KINASE 121 IU/L (39-308); HDL CHOLESTEROL 77 mg/dL (40-59)
[2019-01-12] MEDS: ENOXAPARIN 40MG/0.4ML SYR SUBCUT SCH ×3 (08:49→09:00)
[2019-01-12 09:53] LABS: CHLORIDE 111 mEq/L (98-107)
[2019-01-12 09:58] LABS: PHOSPHORUS 3.1 mg/dL (2.5-4.9)
[2019-01-12] MEDS: BLOOD SUGAR DIAGNOSTIC STRIP TEST SCH ×3 (11:30→20:58)
[2019-01-12] MEDS: INSULIN LISPRO 100 UNITS/ML SUBCUT SCH ×3 (12:00→21:04)
[2019-01-12] MEDS ORDERED: DEXT 5%/0.9% NACL KCL 20MEQ/L 1,000 ML IV PRN ×2 (14:45)
[2019-01-12 14:57] LABS: CREATINE KINASE 91 IU/L (39-308)
[2019-01-12 14:58] LABS: CREATINE KINASE MB FRACTION < 1.0 ng/mL (0.5-3.6)
[2019-01-12] MEDS ORDERED: ATORVASTATIN CALCIUM 10MG TABLET PO SCH (21:00)
[2019-01-12] MEDS: INSULIN NPH (HUMULIN-N) 100 UNITS/ML 3ML VIAL SUBCUT SCH (21:05)
[2019-01-13] VITALS (11 sets, daily range): BP systolic 105–134; BP diastolic 58–86
[2019-01-13] MEDS: BLOOD SUGAR DIAGNOSTIC STRIP TEST SCH ×2 (06:34→12:03)
[2019-01-13] MEDS: INSULIN LISPRO 100 UNITS/ML SUBCUT SCH ×2 (07:00→12:21)
[2019-01-13] MEDS: INSULIN NPH (HUMULIN-N) 100 UNITS/ML 3ML VIAL SUBCUT SCH (08:03)
[2019-01-13] MEDS: ENOXAPARIN 40MG/0.4ML SYR SUBCUT SCH (08:08)
== END 2019-01-13 13:40 | disposition left against medical advice (07) | DRG 420 ==
LOC: ER 18:57 → MICUSO 22:04 → EDBEDREQ 22:07 → ENRESERV 22:39 → 8WST 01-13 09:42
PROVIDERS: ADMIT Internal Medicine; ATTEND Internal Medicine
DX: E11.10 Type 2 diabetes mellitus with ketoacidosis without coma (principal); N17.9 Acute kidney failure, unspecified; E87.5 Hyperkalemia; E86.0 Dehydration; E78.00 Pure hypercholesterolemia, unspecified; I10 Essential (primary) hypertension; N40.0 Benign prostatic hyperplasia without lower urinary tract symptoms; Z91.14 Patient's other noncompliance with medication regimen; Z79.82 Long term (current) use of aspirin; Z79.4 Long term (current) use of insulin; Z79.899 Other long term (current) drug therapy
CPT/HCPCS: 36415; 71045; 80048; 80061; 80320; 82010; 82550; 82553; 82962; 83036; 83605; 83735; 83880; 84100; 84443; 84484; 93005; 93970; 96361; 96365; 99285; J1650; J1815; J2405; J7030; J7050; G0480

== ENCOUNTER 2019-01-20 22:55 | Emergency (ER) | payer MEDICAID ==
[~2019-01-20] VITALS: Ht 182.9 cm; Wt 95.0 kg
[2019-01-20 23:24] VITALS: BP 135/82
== END 2019-01-20 23:42 | disposition home or self-care (01) ==
LOC: ER 22:55
DX: E11.649 Type 2 diabetes mellitus with hypoglycemia without coma (principal); R45.1 Restlessness and agitation; Z79.4 Long term (current) use of insulin
CPT/HCPCS: 99283

== ENCOUNTER 2019-08-04 20:12 | Emergency (ER) | payer MEDICAID ==
[~2019-08-04] VITALS: Ht 182.9 cm; Wt 77.0 kg
[~2019-08-04 20:12] MED LIST changes: +INSU100I13 SQ; +INSU100I28 SQ; +METF-416 MT; -benazepril; -nph insulin SUBCUT; -regular insulin; -regular insulin SUBCUT
[2019-08-04] MEDS ORDERED: SODIUM CHLORIDE 0.9% 1,000 ML IV ONE ×2 (21:57→23:15)
[2019-08-04 22:53] LABS: BASOPHILS % 1.1 % (0.0-2.0); EOSINOPHILS % 1.7 % (0.0-5.0); HEMATOCRIT. 41.7 % (42.0-52.0); HEMOGLOBIN. 14.1 g/dL (14.0-18.0); LYMPHOCYTES % 17.5 % (20.0-50.0); MEAN CORPUSCULAR HEMOGLOBIN 31.6 pg (28.0-32.0); MEAN CORPUSCULAR VOLUME 93.6 fL (80.0-94.0); MEAN PLATELET VOLUME 8.3 fl (7.4-10.4); MONOCYTES % 8.8 % (2.0-8.0); NEUTROPHILS % 70.9 % (40.0-76.0); PLATELET 276 x1000/uL (130-400); RED BLOOD CELL COUNT 4.46 mill/uL (4.7-6.1)
[2019-08-04 22:54] LABS: CHLORIDE 99 mEq/L (98-107)
[2019-08-04 22:57] LABS: ETHANOL BLOOD < 10 mg/dL
[2019-08-04] MEDS ORDERED: INSULIN LISPRO 100 UNITS/ML SUBCUT ONE (23:15)
[2019-08-05] MEDS ORDERED: INSULIN LISPRO 100 UNITS/ML SUBCUT SCH (01:15)
[2019-08-05 02:15] LABS: CLARITY URINE CLEAR (CLEAR); COLOR URINE YELLOW (YELLOW); KETONES URINE 3+ (NEGATIVE); LEUKOCYTE ESTERASE URINE NEGATIVE (NEGATIVE); NITRITE URINE NEGATIVE (NEGATIVE); OCCULT BLOOD URINE NEGATIVE (NEGATIVE); PH URINE 5.5 (4.5-8.0); PROTEIN URINE TRACE (NEGATIVE); SPECIFIC GRAVITY URINE 1.026 (1.005-1.030)
[2019-08-05 02:41] LABS: *AMPHETAMINES SCREEN URINE NEGATIVE (NEGATIVE); *BARBITURATES SCREEN URINE NEGATIVE (NEGATIVE); *BENZODIAZEPINES SCREEN URINE NEGATIVE (NEGATIVE); *COCAINE SCREEN URINE PRESUMTIVE POSITIVE (NEGATIVE)
[2019-08-05 02:42] LABS: CANNABINOID URINE SCREEN NEGATIVE (NEGATIVE); METHADONE URINE SCREEN NEGATIVE (NEGATIVE); OPIATES URINE SCREEN NEGATIVE (NEGATIVE); PHENCYCLIDINE URINE SCREEN NEGATIVE (NEGATIVE)
[2019-08-05 05:06] VITALS: BP 129/62
== END 2019-08-05 05:07 | disposition left against medical advice (07) ==
LOC: ER 20:21
DX: E11.65 Type 2 diabetes mellitus with hyperglycemia (principal); R53.1 Weakness; Z79.4 Long term (current) use of insulin; Z79.899 Other long term (current) drug therapy
CPT/HCPCS: 36415; 71045; 80053; 80165; 80305; 80320; 81003; 82962; 83605; 83880; 84484; 85025; 93005; 96360; 96361; 96372; 99285; J1815; J7030; G0480

== ENCOUNTER 2019-08-05 12:50 | Inpatient (IN) | payer MEDICAID ==
[~2019-08-05] VITALS: Ht 185.4 cm; Wt 77.6 kg
[2019-08-05 14:00] LABS: HEMATOCRIT. 41.7 % (42.0-52.0); HEMOGLOBIN. 13.5 g/dL (14.0-18.0); MEAN CORPUSCULAR VOLUME 95.7 fL (80.0-94.0); MEAN PLATELET VOLUME 7.8 fl (7.4-10.4); PLATELET 310 x1000/uL (130-400); RED BLOOD CELL COUNT 4.36 mill/uL (4.7-6.1); RED CELL DISTRIBUTION WIDTH 13.2 % (11.6-14.6)
[2019-08-05] MEDS ORDERED: SODIUM CHLORIDE 0.9% 100 ML IV ONE (14:00)
[2019-08-05 14:05] LABS: CHLORIDE 103 mEq/L (98-107)
[2019-08-05 14:07] LABS: CLARITY URINE CLEAR (CLEAR); COLOR URINE YELLOW (YELLOW); KETONES URINE 3+ (NEGATIVE); LEUKOCYTE ESTERASE URINE NEGATIVE (NEGATIVE); NITRITE URINE NEGATIVE (NEGATIVE); OCCULT BLOOD URINE NEGATIVE (NEGATIVE); PROTEIN URINE NEGATIVE (NEGATIVE); SPECIFIC GRAVITY URINE 1.031 (1.005-1.030); UROBILINOGEN URINE 0.2 E.U./dL (0.2-1.0)
[2019-08-05 14:10] LABS: ETHANOL BLOOD < 10 mg/dL
[2019-08-05 14:16] LABS: BETA HYDROXYBUTYRATE 6.1 mMol/L (0.0-0.3)
[2019-08-05 14:21] LABS: PLATELET ESTIMATE NORMAL
[2019-08-05 14:35] LABS: *AMPHETAMINES SCREEN URINE NEGATIVE (NEGATIVE); *BARBITURATES SCREEN URINE NEGATIVE (NEGATIVE)
[2019-08-05 14:36] LABS: *BENZODIAZEPINES SCREEN URINE NEGATIVE (NEGATIVE); *COCAINE SCREEN URINE PRESUMTIVE POSITIVE (NEGATIVE); CANNABINOID URINE SCREEN NEGATIVE (NEGATIVE); METHADONE URINE SCREEN NEGATIVE (NEGATIVE); OPIATES URINE SCREEN NEGATIVE (NEGATIVE); PHENCYCLIDINE URINE SCREEN NEGATIVE (NEGATIVE)
[2019-08-05] MEDS ORDERED: INSULIN REGULAR (HUMULIN R) 300UNITS/3ML SUBCUT ONE (14:45)
[2019-08-05 14:50] LABS: BG BASE EXCESS -11.4 mmol/L (-2.0-2.0); BG CARBOXYHEMOGLOBIN 1.2 % (0.5-1.5); BG DEOXYHEMOGLOBIN 3.8 % (0.0-5.0); BG FRACTION INSPIRED OXYGEN 21; BG HCO3 ACT 14.8 mmol/L (22.0-26.0); BG OXYGEN SATURATION 96.2 % (92.0-98.5); BG PCO2 34.4 mmHg (35.0-45.0); BG PH 7.251 (7.350-7.450); BG PO2 88.8 mmHg (75.0-100.0); BG SAMPLE SITE LEFT BRACHIAL; BG VENT MODE ROOM AIR
[2019-08-05] MEDS ORDERED: SODIUM CHLORIDE 0.9% 1,000 ML IV ONE (15:15)
[2019-08-05] MEDS ORDERED: ACETAMINOPHEN 325MG TABLET PO PRN (23:15)
[2019-08-05] MEDS ORDERED: HYDROCODONE/ACETAMINOPHEN 5/325MG TABLET PO PRN (23:15)
[2019-08-05] MEDS ORDERED: ONDANSETRON HCL 4MG/2ML INJ IV PRN (23:15)
[2019-08-05] MEDS ORDERED: CLONIDINE 0.1MG TABLET PO PRN (23:15)
[2019-08-06] VITALS (7 sets, daily range): BP systolic 99–153; BP diastolic 65–80
[2019-08-06] MEDS ORDERED: DEXTROSE 50% WATER 50ML SYRINGE IV PRN (03:30)
[2019-08-06] MEDS: SODIUM CHLORIDE 0.9% INJ 3ML FLUSH IVF SCH ×3 (06:53→21:53)
[2019-08-06] MEDS: INSULIN LISPRO 100 UNITS/ML SUBCUT SCH ×7 (06:55→21:52)
[2019-08-06 07:04] LABS: BASOPHILS % 1.2 % (0.0-2.0); EOSINOPHILS % 1.1 % (0.0-5.0); HEMATOCRIT. 38.3 % (42.0-52.0); HEMOGLOBIN. 12.5 g/dL (14.0-18.0); MEAN CORPUSCULAR HEMOGLOBIN 31.1 pg (28.0-32.0); MEAN PLATELET VOLUME 7.8 fl (7.4-10.4); MONOCYTES % 5.7 % (2.0-8.0); PLATELET 290 x1000/uL (130-400); RED BLOOD CELL COUNT 4.03 mill/uL (4.7-6.1)
[2019-08-06] MEDS: BLOOD SUGAR DIAGNOSTIC STRIP TEST SCH ×4 (07:20→21:49)
[2019-08-06 07:33] LABS: CHLORIDE 109 mEq/L (98-107)
[2019-08-06] MEDS: ENOXAPARIN 40MG/0.4ML SYR SUBCUT SCH ×2 (09:00→09:10)
[2019-08-06] MEDS: INSULIN GLARGINE UD 100 UNITS/ML SYR SUBCUT SCH ×2 (10:00→21:52)
[2019-08-07 04:00] VITALS: BP 111/81
[2019-08-07] MEDS: BLOOD SUGAR DIAGNOSTIC STRIP TEST SCH ×2 (06:38→11:52)
[2019-08-07] MEDS: SODIUM CHLORIDE 0.9% INJ 3ML FLUSH IVF SCH (06:48)
[2019-08-07] MEDS: INSULIN LISPRO 100 UNITS/ML SUBCUT SCH ×4 (06:50→12:20)
[2019-08-07 08:16] VITALS: BP 127/78
[2019-08-07] MEDS: ENOXAPARIN 40MG/0.4ML SYR SUBCUT SCH ×2 (09:00→09:08)
[2019-08-07] MEDS: INSULIN GLARGINE UD 100 UNITS/ML SYR SUBCUT SCH (10:24)
[2019-08-07 11:50] VITALS: BP 122/79
[2019-08-07 15:29] VITALS: BP 122/79
[2019-08-07 16:02] VITALS: BP 106/82
== END 2019-08-07 16:30 | disposition home or self-care (01) | DRG 420 ==
LOC: ER 12:50 → MICUSO 16:30 → 6WST 08-06 01:22
PROVIDERS: ADMIT Internal Medicine; ATTEND Internal Medicine
DX: E11.65 Type 2 diabetes mellitus with hyperglycemia (principal); R65.10 Systemic inflammatory response syndrome (SIRS) of non-infectious origin without acute organ dysfunction; E86.0 Dehydration; I10 Essential (primary) hypertension; F17.200 Nicotine dependence, unspecified, uncomplicated; Z59.0 Homelessness; Z79.4 Long term (current) use of insulin; Z91.19 Patient's noncompliance with other medical treatment and regimen; Z79.84 Long term (current) use of oral hypoglycemic drugs; Z79.899 Other long term (current) drug therapy
CPT/HCPCS: 36415; 36600; 71045; 80048; 80053; 80305; 80320; 81003; 82010; 82375; 82805; 82962; 83036; 83880; 84484; 85025; 93005; 99285; J1650; J1815; J7030; J7050; G0480

== ENCOUNTER 2019-09-19 07:03 | Emergency (ER) | payer MEDICAID ==
[~2019-09-19] VITALS: Ht 185.4 cm; Wt 82.0 kg
[2019-09-19 07:14] VITALS: BP 145/82
[2019-09-19] MEDS ORDERED: ACETAMINOPHEN 325MG TABLET PO ONE (07:30)
== END 2019-09-19 07:33 | disposition home or self-care (01) ==
LOC: ER 07:03
DX: S90.562A Insect bite (nonvenomous), left ankle, initial encounter (principal); E11.9 Type 2 diabetes mellitus without complications; W57.XXXA Bitten or stung by nonvenomous insect and other nonvenomous arthropods, initial encounter; Y93.89 Activity, other specified; Y92.89 Other specified places as the place of occurrence of the external cause
CPT/HCPCS: 99283